=== PATIENT | male | born 1960 | race Two or more races ===

== ENCOUNTER 2020-03-04 10:57 | Inpatient (IN) | payer OTHER ==
[~2020-03-04] VITALS: Ht 170.2 cm; Wt 79.0 kg
[2020-03-04] MEDS ORDERED: ASPirin 81 mg TAB PO ONE (11:30)
[2020-03-04 11:37] LABS: Basophils # (auto) 0.1 10 ^3/uL (0-0.2); Basophils % (auto) 0.7 % (0.0-2.0); Eosinophils # (auto) 0.1 10 ^3/uL (0-0.8); Eosinophils % (auto) 0.7 % (0.0-7.0); Hematocrit 42.9 % (41.0-53.0); Hemoglobin 15.2 g/dL (13.5-17.5); Lymphocytes # (auto) 0.9 10 ^3/uL (0.4-5.4); Lymphocytes % (auto) 10.8 % (10.0-50.0); Mean Corpuscular Hemoglobin 30.1 pg (28.0-32.0); Mean Corpuscular Hgb Conc. 35.4 g/dL (32.0-36.0); Mean Corpuscular Volume 84.9 fL (80.0-100.0); Monocytes # (auto) 0.4 10 ^3/uL (0-1.3); Monocytes % (auto) 4.5 % (0.0-12.0); Neutrophils # (auto) 6.8 10 ^3/uL (1.6-8.6); Neutrophils % (auto) 83.3 % (37.0-80.0); Nucleated Red Blood Cells % 0.2 %; Platelet Count (auto) 153 10^3/uL (140-450); Red Blood Cells 5.05 10^6/uL (4.5-5.90); Red Cell Distribution Width 14.4 % (11.8-14.3); White Blood Cell 8.2 10^3/uL (4.4-10.8)
[2020-03-04] MEDS ORDERED: ALTEPLASE (RECOMBINANT) 100 MG ONE (11:53)
[2020-03-04 11:57] LABS: Albumin 4.1 g/dL (3.4-5.0); Anion Gap 5 (5-15); Blood Urea Nitrogen 17 mg/dL (7-18); Calcium 8.6 mg/dL (8.5-10.1); Carbon Dioxide 25 mmol/L (21-32); Chloride 104 mmol/L (98-107); Glucose 222 mg/dL (74-106); Magnesium 2.3 mg/dL (1.6-2.6); Sodium 134 mmol/L (136-145)
[2020-03-04] MEDS ORDERED: STERILE WATER IV ONE ×4 (12:00)
[2020-03-04] MEDS ORDERED: ALTEPLASE (RECOMBINANT) 100 MG VIAL IV ONE (12:00)
[2020-03-04] MEDS ORDERED: ALTEPLASE IV ONE ×4 (12:00)
[2020-03-04 12:05] LABS: Alanine Aminotransferase 37 U/L (16-61); Alkaline Phosphatase 58 U/L (45-117); Aspartate Aminotransferase 19 U/L (15-37); Bilirubin, Total 1.8 mg/dL (0.2-1.0); GFR African American 118 mL/min; GFR Non-African American 98 mL/min; Total Protein 7.1 g/dL (6.4-8.2)
[2020-03-04 12:40] LABS: INR 1.04 (0.9-1.15); Partial Thromboplastin Time 23.9 sec (23.0-31.2)
[2020-03-04] MEDS ORDERED: NITROGLYCERIN 0.4 MG SL TAB SL PRN (12:45)
[2020-03-04] MEDS ORDERED: DEXTROSE (50%) 50ML SYRG IV PRN (12:45)
[2020-03-04] MEDS ORDERED: MORPHINE SULF INJ 2 MG/ML SYRINGE 1ML IV PRN ×2 (12:45)
[2020-03-04] MEDS ORDERED: HYDROcodone-ACET 5/325MG TAB PO PRN (12:45)
[2020-03-04] MEDS ORDERED: ONDANSETRON HCL 4 MG/2 ML VIAL IV PRN (12:45)
[2020-03-04] MEDS ORDERED: ACETAMINOPHEN 500 MG TAB PO PRN ×2 (12:45→14:30)
[2020-03-04 13:05] LABS: Cholesterol 199 mg/dL (< 200)
[2020-03-04 13:08] LABS: HDL Cholesterol 27 mg/dL (40-59); LDL Cholesterol 109 mg/dL (< 100); Triglycerides 373 mg/dL (< 150)
[2020-03-04] MEDS: ACCU-CHEK COMFORT CURVE STRIP VI SCH ×2 (13:27→21:49)
[2020-03-04] MEDS: InsuLIN REG 1unit/0.01ml Soln (100units/ml) SC SCH ×2 (13:27→21:49)
[2020-03-04] MEDS ORDERED: SODIUM CHLORIDE 0.9% 1,000 ML IV ONE (14:30)
[2020-03-04] MEDS ORDERED: LABETALOL HCL 5 MG/ML 4ML SYRINGE IV PRN (14:30)
[2020-03-04] MEDS ORDERED: IOHEXOL 350 MG/ML 100ML IJ ONE (14:55)
[2020-03-04] MEDS: ATORVASTATIN 20 MG TAB PO SCH (21:39)
[2020-03-05 00:47] LABS: Alcohol, Urine < 3.0 mg/dL (0-10); Amphetamine Screen, Urine NEGATIVE (NEGATIVE); Barbiturate Scree,Urine NEGATIVE (NEGATIVE); Benzodiazephine Screen, Urine NEGATIVE (NEGATIVE); Cannabinoid Screen, Urine NEGATIVE (NEGATIVE); Cocaine Screen, Urine NEGATIVE (NEGATIVE); Opiate Scree,Urine NEGATIVE (NEGATIVE); Phencyclidine Screen, Urine NEGATIVE (NEGATIVE)
[2020-03-05] MEDS: ACCU-CHEK COMFORT CURVE STRIP VI SCH ×4 (07:02→21:36)
[2020-03-05] MEDS: InsuLIN REG 1unit/0.01ml Soln (100units/ml) SC SCH ×4 (07:08→21:36)
[2020-03-05] MEDS ORDERED: LORazepam 2MG/ML-1ML VIAL IV PRN (09:00)
[2020-03-05] MEDS ORDERED: ASPirin 81 mg TAB PO SCH ×2 (10:00)
[2020-03-05] MEDS: FAMOTIDINE 20 MG TAB PO SCH (10:00)
[2020-03-05] MEDS: ATORVASTATIN 20 MG TAB PO SCH (21:36)
[2020-03-06] MEDS: ACCU-CHEK COMFORT CURVE STRIP VI SCH ×4 (06:57→21:30)
[2020-03-06] MEDS: InsuLIN REG 1unit/0.01ml Soln (100units/ml) SC SCH ×4 (06:57→21:31)
[2020-03-06] MEDS: FAMOTIDINE 20 MG TAB PO SCH (09:45)
[2020-03-06] MEDS: ASPirin-EC 81 mg tab PO SCH (09:45)
[2020-03-06] MEDS: ATORVASTATIN 20 MG TAB PO SCH (21:30)
[2020-03-07] MEDS: ACCU-CHEK COMFORT CURVE STRIP VI SCH ×4 (06:38→21:25)
[2020-03-07] MEDS: InsuLIN REG 1unit/0.01ml Soln (100units/ml) SC SCH ×4 (06:43→21:24)
[2020-03-07] MEDS: FAMOTIDINE 20 MG TAB PO SCH (08:12)
[2020-03-07] MEDS: ASPirin-EC 81 mg tab PO SCH (08:12)
[2020-03-07] MEDS: ATORVASTATIN 20 MG TAB PO SCH (21:24)
[2020-03-08 04:28] LABS: Basophils # (auto) 0 10 ^3/uL (0-0.2); Basophils % (auto) 0.4 % (0.0-2.0); Eosinophils # (auto) 0.1 10 ^3/uL (0-0.8); Eosinophils % (auto) 1.3 % (0.0-7.0); Hemoglobin 16.3 g/dL (13.5-17.5); Lymphocytes % (auto) 14.3 % (10.0-50.0); Mean Corpuscular Hemoglobin 29.8 pg (28.0-32.0); Mean Corpuscular Hgb Conc. 34.6 g/dL (32.0-36.0); Monocytes # (auto) 0.6 10 ^3/uL (0-1.3); Monocytes % (auto) 8.7 % (0.0-12.0); Neutrophils # (auto) 5.3 10 ^3/uL (1.6-8.6); Neutrophils % (auto) 75.3 % (37.0-80.0); Nucleated Red Blood Cells % 0.2 %; Platelet Count (auto) 167 10^3/uL (140-450); Red Blood Cells 5.46 10^6/uL (4.5-5.90); Red Cell Distribution Width 13.8 % (11.8-14.3)
[2020-03-08 04:51] LABS: BUN/Creatinine Ratio 20.2; Calcium 9.4 mg/dL (8.5-10.1); Potassium 3.6 mmol/L (3.5-5.1)
[2020-03-08 05:09] LABS: INR 1.03 (0.9-1.15)
[2020-03-08] MEDS: InsuLIN REG 1unit/0.01ml Soln (100units/ml) SC SCH ×4 (07:00→22:42)
[2020-03-08] MEDS: ACCU-CHEK COMFORT CURVE STRIP VI SCH ×4 (07:00→22:37)
[2020-03-08] MEDS: ASPirin-EC 81 mg tab PO SCH (08:02)
[2020-03-08] MEDS: FAMOTIDINE 20 MG TAB PO SCH (08:02)
[2020-03-08] MEDS ORDERED: cloNIDine HCL 0.1 MG TAB PO PRN (10:30)
[2020-03-08] MEDS: LISINOPRIL 20 MG TAB PO SCH (11:03)
[2020-03-08] MEDS: METOPROLOL TARTRATE 50 MG TAB PO SCH ×2 (11:03→22:32)
[2020-03-08 21:30] VITALS: BP 121/73
[2020-03-08 22:10] VITALS: BP 121/73
[2020-03-08] MEDS: ATORVASTATIN 20 MG TAB PO SCH (22:31)
[2020-03-09 04:47] VITALS: BP 125/72
[2020-03-09] MEDS: InsuLIN REG 1unit/0.01ml Soln (100units/ml) SC SCH ×4 (05:54→21:39)
[2020-03-09] MEDS: ACCU-CHEK COMFORT CURVE STRIP VI SCH ×4 (05:55→21:40)
[2020-03-09 09:00] VITALS: BP 115/65
[2020-03-09] MEDS: ASPirin-EC 81 mg tab PO SCH (10:56)
[2020-03-09] MEDS: LISINOPRIL 20 MG TAB PO SCH (10:57)
[2020-03-09] MEDS: METOPROLOL TARTRATE 50 MG TAB PO SCH ×2 (10:58→21:39)
[2020-03-09] MEDS: FAMOTIDINE 20 MG TAB PO SCH (10:59)
[2020-03-09 13:00] VITALS: BP 99/58
[2020-03-09 16:31] VITALS: BP 136/69
[2020-03-09] MEDS: ATORVASTATIN 20 MG TAB PO SCH (21:38)
[2020-03-09 22:00] VITALS: BP 120/67
[2020-03-10 05:00] VITALS: BP 130/82
[2020-03-10] MEDS: ACCU-CHEK COMFORT CURVE STRIP VI SCH ×4 (06:37→21:10)
[2020-03-10] MEDS: InsuLIN REG 1unit/0.01ml Soln (100units/ml) SC SCH ×4 (06:37→21:09)
[2020-03-10 09:00] VITALS: BP 133/79
[2020-03-10] MEDS: ASPirin-EC 81 mg tab PO SCH (10:39)
[2020-03-10] MEDS: METOPROLOL TARTRATE 50 MG TAB PO SCH ×2 (10:39→21:55)
[2020-03-10] MEDS: FAMOTIDINE 20 MG TAB PO SCH (10:39)
[2020-03-10] MEDS: LISINOPRIL 20 MG TAB PO SCH (10:40)
[2020-03-10 13:00] VITALS: BP 127/65
[2020-03-10 17:00] VITALS: BP 116/57
[2020-03-10] MEDS: ATORVASTATIN 20 MG TAB PO SCH (21:55)
[2020-03-10 22:00] VITALS: BP 123/66
[2020-03-11 05:00] VITALS: BP 119/62
[2020-03-11] MEDS: InsuLIN REG 1unit/0.01ml Soln (100units/ml) SC SCH ×4 (06:07→21:57)
[2020-03-11] MEDS: ACCU-CHEK COMFORT CURVE STRIP VI SCH ×4 (06:07→21:25)
[2020-03-11 08:51] VITALS: BP 130/71
[2020-03-11] MEDS: METOPROLOL TARTRATE 50 MG TAB PO SCH ×2 (09:23→21:24)
[2020-03-11] MEDS: ASPirin-EC 81 mg tab PO SCH (09:23)
[2020-03-11] MEDS: LISINOPRIL 20 MG TAB PO SCH (09:24)
[2020-03-11] MEDS: FAMOTIDINE 20 MG TAB PO SCH (09:24)
[2020-03-11 12:44] VITALS: BP 119/58
[2020-03-11 17:00] VITALS: BP 126/61
[2020-03-11] MEDS: ATORVASTATIN 20 MG TAB PO SCH (21:24)
[2020-03-11 21:30] VITALS: BP 130/69
[2020-03-12 05:00] VITALS: BP 124/67
[2020-03-12] MEDS: ACCU-CHEK COMFORT CURVE STRIP VI SCH ×3 (06:21→16:56)
[2020-03-12] MEDS: InsuLIN REG 1unit/0.01ml Soln (100units/ml) SC SCH ×3 (06:29→16:56)
[2020-03-12 09:00] VITALS: BP 123/88
[2020-03-12] MEDS: METOPROLOL TARTRATE 50 MG TAB PO SCH (10:13)
[2020-03-12] MEDS: ASPirin-EC 81 mg tab PO SCH (10:13)
[2020-03-12] MEDS: FAMOTIDINE 20 MG TAB PO SCH (10:14)
[2020-03-12] MEDS: LISINOPRIL 20 MG TAB PO SCH (10:14)
[2020-03-12 13:00] VITALS: BP 128/73
[2020-03-12 16:32] VITALS: BP 129/72
== END 2020-03-12 18:37 | disposition home health service (06) | DRG 62 ==
LOC: EDBD 10:57 → ER 10:57 → TELE 12:42 → TELE-CENTR 03-08 21:29
PROVIDERS: ADMIT Nurse Practitioner Acute Care; ATTEND Family Medicine
DX: I63.511 Cerebral infarction due to unspecified occlusion or stenosis of right middle cerebral artery (principal); G81.94 Hemiplegia, unspecified affecting left nondominant side; R41.4 Neurologic neglect syndrome; E11.9 Type 2 diabetes mellitus without complications; E66.9 Obesity, unspecified; F17.200 Nicotine dependence, unspecified, uncomplicated; H53.462 Homonymous bilateral field defects, left side; I10 Essential (primary) hypertension; Z20.828 Contact with and (suspected) exposure to other viral communicable diseases; R29.810 Facial weakness; Z79.82 Long term (current) use of aspirin; Z79.899 Other long term (current) drug therapy; Z82.49 Family history of ischemic heart disease and other diseases of the circulatory system; Z83.3 Family history of diabetes mellitus; Z68.27 Body mass index [BMI] 27.0-27.9, adult
CPT/HCPCS: 36415; 70450; 70496; 70498; 70551; 71045; 80048; 80053; 80061; 80307; 82962; 83036; 83735; 84484; 85025; 85610; 85730; 87426; 92610; 93005; 93306; 93886; 97110; 97116; 97163; 97530; 99291; G0378; J1815; J3490